=== PATIENT | female | born 1955 | race Hispanic/Latino ===

== ENCOUNTER 2019-09-15 10:40 | Observation (INO) | payer BC ==
--- NOTE | 2019-09-14 10:55 | Anesthesia Consultation ---
Anesthesia Consult and Med Hx Date of service: 09/14/19 - Airway Anesthetic Teeth Evaluation: Poor ROM Head & Neck: Adequate Mental/Hyoid Distance: Adequate Mallampati Class: Class II Intubation Access Assessment: Good - Pulmonary Exam CTA: Yes - Cardiac Exam Cardiac Exam: RRR - Pre-Operative Health Status ASA Pre-Surgery Classification: ASA3 Proposed Anesthetic Plan: General (Smoker recently quit but still smells of tobacco - 2 packs a day 40 + years , hypothyroidism, , hearing impairment ) - Pulmonary Hx Smoking: Yes (SINCE AGE 19; 2PACKS/DAILY;QUIT 08/2019) Hx Sleep Apnea: (HIGH RISK) - Central Nervous System Hx Psychiatric Problems: No - Gastrointestinal Hx Ulcer: Yes (PERFORATED (SX)) - Endocrine Hx Hypothyroidism: Yes - Other Systems Hx Alcohol Use: No Hx Substance Use: No Hx Cancer: No
--- NOTE | 2019-09-14 11:26 | XRay Report ---
CHEST 2 VIEWS INDICATION: Pre- Surgical; Heavy Smoker. COMPARISON: FINDINGS: Support devices: None. Heart: Within normal limits. Lungs/pleura: No acute air space or interstitial disease. No pneumothorax. Additional findings: None. IMPRESSION: Unremarkable chest films. Signer Name: Akshat Alexandre Jr, MD Signed: 09/14/2019 11:22 AM Workstation Name: [id number]
[~2019-09-15 10:40] MED LIST: VANCOMYCIN 1,750 MG in SODIUM CHLORIDE 0.9% 500 ML 500 ML IV SCH
[2019-09-15] MEDS ORDERED: LACTATED RINGERS 1,000 ML ONE ×2 (12:06→15:45)
[2019-09-15] MEDS ORDERED: BUPIVACAINE-EPINEPHRINE/PF 0.5%-1:200,000 (30 ML) VIAL INFILTRATI ONE (12:37)
[2019-09-15] MEDS ORDERED: LIDOCAINE (1%) 10 MG/1 ML VIAL 20 ML MDV ONE ×2 (12:37→13:30)
[2019-09-15] MEDS ORDERED: MIDAZOLAM 2 MG/2 ML INJ IV NR (13:00)
[2019-09-15] MEDS ORDERED: LACTATED RINGERS 1,000 ML IV SCH (13:00)
[2019-09-15] MEDS ORDERED: LIDOCAINE MPF (2%) 20 MG/1 ML VIAL 5 ML ONE (13:23)
[2019-09-15] MEDS ORDERED: ROCURONIUM 50 MG/5 ML INJ IV ONE ×2 (13:23→15:16)
[2019-09-15] MEDS ORDERED: fentaNYL 100 MCG/2 ML INJ ONE ×2 (13:23→16:03)
[2019-09-15] MEDS ORDERED: PROPOFOL 200 MG/20 ML VIAL IV ONE (13:23)
[2019-09-15] MEDS ORDERED: BUPIVACAINE/PF (0.5%) 5 MG/1 ML 30 ML VIAL INFILTRATI ONE (13:30)
[2019-09-15] MEDS ORDERED: fentaNYL 100 MCG/2 ML INJ IV ONE (13:31)
--- NOTE | 2019-09-15 13:31 | Anesthesia Day of Surgery ---
Anesthesia Day of Surgery - Day of Surgery Patient Examined: Yes Patient H&P Reviewed: Yes Patient is NPO: Yes
[2019-09-15] MEDS ORDERED: ePHEDrine SULFATE 50 MG/1 ML INJ ONE (13:53)
[2019-09-15] MEDS ORDERED: ONDANSETRON 4 MG/2 ML INJ ONE (14:21)
[2019-09-15] MEDS ORDERED: dexAMETHasone 20 MG/5 ML VIAL ONE (14:21)
[2019-09-15] MEDS ORDERED: SODIUM CHLORIDE 0.9% IRR 1,500 ML BOTTLE IR ONE (15:08)
[2019-09-15] MEDS ORDERED: HYDROmorphone 1 MG/1 ML INJ ONE ×2 (17:09→17:15)
--- NOTE | 2019-09-15 17:51 | Post Operative Note ---
Date of procedure: 09/15/19 Pre-op diagnosis: incarcerated incisional hernia Post-op diagnosis: same Findings: 1. 13cm x 7 cm incarcerated incisional hernia containing omentum 2. Complex omental and colon adhesions to anterior abdominal wall 3. 15cm x 20 cm mesh used to repair defect Procedure: robotic assisted lysis of adhesions, reduction of incarcerated incisional hernia, repair of hernia with mesh Anesthesia: GETA, other (ACACIA BLOCK) Surgeon: DIDIER MCCLURE Graining Press Operator: SARAI RENDON Estimated blood loss: minimal Pathology: none Condition: stable Disposition: PACU
--- NOTE | 2019-09-15 18:17 | Event Note ---
Date: 09/15/19 Patient scheduled for outpatient Robotic assisted incisional hernia repair. Hernia repair was complex and required more time to perform than anticipated. Patient stable but will require admission for observation (likely less than 48hrs) and for pain control. Discussed with her mother in law. All orders placed.
[2019-09-15] MEDS ORDERED: oxyCODONE /ACETAMINOPHEN 5-325MG TAB PO PRN (18:54)
[2019-09-15] MEDS ORDERED: MORPHINE 2 MG/1 ML INJ IV PRN (18:54)
[2019-09-15] MEDS ORDERED: ACETAMINOPHEN 325 MG TAB PO PRN (18:54)
[2019-09-15] MEDS: HEPARIN 5,000 UNIT/1 ML VIAL SUB-Q SCH (23:00)
[2019-09-15] MEDS: D5W/0.45% NACL 1,000 ML IV SCH (23:01)
[2019-09-16] MEDS: ONDANSETRON 4 MG/2 ML INJ IV PRN ×2 (02:25→10:14)
[2019-09-16] MEDS: HEPARIN 5,000 UNIT/1 ML VIAL SUB-Q SCH ×3 (06:16→22:57)
[2019-09-16] MEDS: LEVOTHYROXINE 112 MCG TAB PO SCH (06:16)
[2019-09-16 07:47] LABS: Basophils % (Auto) 0.1 % (0.0-1.8); Hematocrit 40.4 % (30.3-42.9); Hemoglobin 13.5 gm/dl (10.1-14.3); Lymphocytes # (Auto) 0.7 K/mm3 (1.2-5.4); Lymphocytes % (Auto) 5.4 % (13.4-35.0); Mean Corpuscular HGB Conc 34 % (30-34); Mean Corpuscular Volume 87 fl (79-97); Monocytes # (Auto) 1.2 K/mm3 (0.0-0.8); Monocytes % (Auto) 9.2 % (0.0-7.3); Platelet Count 280 K/mm3 (140-440); Red Blood Count 4.63 M/mm3 (3.65-5.03); Red Cell Distribution Width 13.9 % (13.2-15.2)
--- NOTE | 2019-09-16 08:35 | Post Anesthesia Evaluation ---
- Post Anesthesia Evaluation Patient Participated: Yes Airway Patent: Yes Stable Respiratory Function: Yes (On Bipap) Nausea/Vomiting: No Temp > 96.8F: Yes Pain Manageable: Yes Adequeate Hydration: Yes Anesthesia Complications: No Block Receding Appropriately: Yes Patient on Ventilator: No
[2019-09-16 08:46] LABS: BUN/Creatinine Ratio 26; Blood Urea Nitrogen 13 mg/dL (7-17); Calcium 9.2 mg/dL (8.4-10.2); Hemolysis Index 6
[2019-09-16] MEDS ORDERED: ONDANSETRON 4 MG/2 ML INJ IV STA (10:08)
[2019-09-16] MEDS: D5W/0.45% NACL 1,000 ML IV SCH (10:21)
--- NOTE | 2019-09-16 11:21 | Progress Note ---
Assessment and Plan 63 yo F s/p robotic assisted lysis of adhesions, incisional hernia repair with mesh, POD 1 Plan: 1. Clear liquid diet 2. IVF 3. zofran Prn, will add compazine prn for nausea 4. dc morphine as it is exacerbating nausea 5. start prn dilaudid for pain 6. OOB to chair/ambulate 7. abdominal binder at all times 8. DVT ppx 9. incentive spirometry/pulm toilet - wean supplemental O2 Thank you, please call with questions. Subjective Date of service: 09/16/19 Narrative: Pt seen and examined. c/o severe nausea and retching. Clear spit up. She states it is exacerbated by the morphine. No f/c. No cp, sob. Minimal abdominal pain. Objective Vital Signs - 12hr 09/16/19 09/16/19 09/16/19 00:00 02:25 04:38 Temperature 98.0 F 97.8 F Pulse Rate 97 H 98 H Respiratory 16 20 16 Rate Blood Pressure 108/66 116/70 O2 Sat by Pulse 94 93 Oximetry 09/16/19 07:56 Temperature 98.1 F Pulse Rate 95 H Respiratory 18 Rate Blood Pressure 123/73 O2 Sat by Pulse 97 Oximetry - General physical appearance Narrative Exam: Gen: AAOx3. mild distress due to nausea CV: S1, S2+ Resp: even and unlabored Abd: soft, ND, very mild TTP near incisions. All incisions c/d/i. No r/r/g. Abdominal binder in place. Ext: no c/c/e - Labs 09/16/19 07:07 09/16/19 07:07 Diabetes panel 09/16/19 Range/Units 07:07 Sodium 142 (137-145) mmol/L Potassium 4.1 (3.6-5.0) mmol/L Chloride 105.0 (98-107) mmol/L Carbon Dioxide 23 (22-30) mmol/L BUN 13 (7-17) mg/dL Creatinine 0.5 L (0.7-1.2) mg/dL Glucose 142 H (65-100) mg/dL Calcium 9.2 (8.4-10.2) mg/dL Calcium panel 09/16/19 Range/Units 07:07 Calcium 9.2 (8.4-10.2) mg/dL Pituitary panel 09/16/19 Range/Units 07:07 Sodium 142 (137-145) mmol/L Potassium 4.1 (3.6-5.0) mmol/L Chloride 105.0 (98-107) mmol/L Carbon Dioxide 23 (22-30) mmol/L BUN 13 (7-17) mg/dL Creatinine 0.5 L (0.7-1.2) mg/dL Glucose 142 H (65-100) mg/dL Calcium 9.2 (8.4-10.2) mg/dL Adrenal panel 09/16/19 Range/Units 07:07 Sodium 142 (137-145) mmol/L Potassium 4.1 (3.6-5.0) mmol/L Chloride 105.0 (98-107) mmol/L Carbon Dioxide 23 (22-30) mmol/L BUN 13 (7-17) mg/dL Creatinine 0.5 L (0.7-1.2) mg/dL Glucose 142 H (65-100) mg/dL Calcium 9.2 (8.4-10.2) mg/dL
[2019-09-16] MEDS: HYDROmorphone 1 MG/1 ML INJ IV PRN (12:04)
[2019-09-16] MEDS: PROCHLORPERAZINE EDISYLATE 10 MG/2 ML VIAL IV PRN (12:20)
[2019-09-17] MEDS: ONDANSETRON 4 MG/2 ML INJ IV PRN (04:35)
[2019-09-17] MEDS: HYDROmorphone 1 MG/1 ML INJ IV PRN (04:36)
[2019-09-17] MEDS: HEPARIN 5,000 UNIT/1 ML VIAL SUB-Q SCH (06:00)
[2019-09-17] MEDS: LEVOTHYROXINE 112 MCG TAB PO SCH (06:00)
--- NOTE | 2019-09-17 09:16 | Discharge Summary ---
Providers - Providers Date of Admission: 09/15/19 18:17 Date of discharge: 09/17/19 Attending physician: DIDIER MCCLURE DO 09/15/19 18:54 Physical Therapy Evaluation and Treat [CONS] Routine Comment: Reason For Exam: post op, walks with cane Primary care physician: HENNA JACOB Hospitalization Reason for admission: incisional hernia Condition: Good Procedures: robotic assisted laparoscopic incisional hernia repair with mesh, lysis of adhesions Hospital course: Patient underwent surgery which was complex and prolonged. She was monitored in PACU. It was decided to admit the patient for observation for pain control, continuous pulse ox and HR monitoring. The patient c/o nausea during the hospitalization. No emesis. Pain medication and antiemetics were prescribed and patient's symptoms improved. She was getting OOB to chair and ambulating to the bathroom. She was discharged to home instable condition with home PT. Disposition: DC-01 TO HOME OR SELFCARE Time spent for discharge: 20 minutes Core Measure Documentation - Palliative Care Palliative Care/ Comfort Measures: Not Applicable - Core Measures Any of the following diagnoses?: none Exam - Physical Exam Narrative exam: Gen: AAOx3. NAD CV: s1, S2+ resp; even and unlabored Abd: soft, ND, mild discomfort on palpation of mid abdomen near incisions. Incisions c/d/i. Abdominal binder in place Ext: no c/c/e - Constitutional Vitals: Temp Pulse Resp BP Pulse Ox 97.9 F 97 H 20 135/71 95 09/17/19 08:44 09/17/19 08:44 09/17/19 08:44 09/17/19 08:44 09/17/19 09:10 Plan Activity: other (NO HEAVY LIFTING OF MORE THAN 15 LBS UNTIL CLEARED BY SURGEON. NO DRIVING IF TAKING NARCOTIC PAIN MEDICATIONS) Diet: low fat Wound: open to air (MAY SHOWER WITH SOAP AND WATER, PAT INCISIONS DRY, DO NOT SCRUB. WEAR ABDOMINAL BINDER AT ALL TIMES EXCEPT FOR WHEN SHOWERING OR DURING SLEEP) Additional Instructions: CALL DR. MCCLURE'S OFFICE IF YOU HAVE INTRACTABLE ABDOMINAL PAIN, NAUSEA, VOMITING OR ANY OTHER CONCERNS. Care Plan Goals: RESUME DAILY ACTIVITIES Plan of Treatment: FOLLOW UP WITH DR. MCCLURE IN 2WEEKS PAIN CONTROL NAUSEA CONTROL PHYSICAL THERAPY Health Concerns: NONE Follow up with: HENNA JACOB MD [Primary Care Provider] - 7 Days DIDIER MCCLURE DO [Staff Physician] - 14 Days Prescriptions: Nicotine [Habitrol] 14 mg TD DAILY #30 patch oxyCODONE /ACETAMINOPHEN [Percocet 5/325] 1 tab PO Q4HR PRN #30 tab PRN Reason: Pain , Severe (7-10) Promethazine [Phenergan] 25 mg PO Q8HR PRN #30 tab PRN Reason: Nausea Ondansetron [Zofran ODT TAB] 8 mg PO Q8HR PRN #30 tab.rapdis PRN Reason: Nausea
[2019-09-17] MEDS: PROCHLORPERAZINE EDISYLATE 10 MG/2 ML VIAL IV PRN (09:32)
[2019-09-17] MEDS ORDERED: oxyCODONE /ACETAMINOPHEN 5-325MG TAB PO PRN (10:00)
--- NOTE | 2019-09-17 12:09 | Operative Report ---
PREOPERATIVE DIAGNOSIS: Incarcerated incisional hernia. POSTOPERATIVE DIAGNOSIS: Incarcerated incisional hernia. FINDINGS: 1. A 13 cm x 7 cm incarcerated incisional hernia containing omentum. 2. Complex omental and colon adhesions to the anterior abdominal wall. 3. A 15 cm x 20 cm mesh used to repair defect. PROCEDURE: Robotic-assisted laparoscopic lysis of adhesions, reduction of incarcerated incisional hernia, repair of hernia with mesh. ANESTHESIA: General endotracheal anesthesia, TAP block. SURGEON: Holly Lares DO PATIENT TRANSITION SPECIALIST: Joe Trujillo MD ESTIMATED BLOOD LOSS: Minimal. PATHOLOGY: None. CONDITION ON DISPOSITION: The patient is stable to PACU. HISTORY OF PRESENT ILLNESS AND INDICATION: The patient is a 63-year-old female who was seen in the office for an incisional hernia that resulted from an emergent exploratory laparotomy for perforated peptic ulcer. The patient was having significant pain from the hernia and CT scan showed a large hernia containing omentum. The patient was smoking a significant amount per day and therefore she was strongly encouraged to quit smoking prior to surgery. Once the patient had quit smoking, approximately 3 weeks, she was scheduled for surgery. All risks, benefits and alternatives to hernia repair were discussed with the patient and questions answered. Consent was obtained. PROCEDURE IN DETAIL: The patient was identified in the preoperative area and taken back to the operating room and placed on the operating table in supine position. After anesthesia was induced, lateral arms were tucked and all bony prominences padded appropriately. Abdomen was prepped and draped in the usual sterile fashion. Timeout was performed. A felicia incision was made in the left upper quadrant at Truong's point through which a Veress needle was inserted. The Veress needle position was confirmed using saline drop test and the abdomen insufflated to 15 mmHg. A 5 mm incision was made in the right upper quadrant through which a 5 mm Optiview trocar was placed. The abdomen was inspected. There was no underlying injury to any of the abdominal structures. The Veress needle tract and tip was seen and it was removed. Upon examination of the abdomen, there were adhesions to the entire right lower quadrant and midline. There was some colon in the right lower quadrant also adhesed to the anterior abdominal wall along with omentum. It was therefore decided to place our ports on the left side where there were no adhesions. An 8 mm robotic trocar was placed in the left upper quadrant as well as left lower quadrant under direct visualization. A 12 mm balloon trocar was placed in the left lateral abdomen half way between each of the robotic trocars. The robot was then docked with a fenestrated bipolar grasper in arm #2 and a monopolar scissor in arm #1. Surgeon was then transferred to the console. A meticulous dissection was then undertaken in order to take down all omental and bowel adhesions to the anterior abdominal wall in order to access the site of the hernia. During the dissection, the omentum, which was incarcerated in the hernia defects was carefully reduced and hemostasis achieved and ensured along the way. The lysis of adhesions took approximately 2 hours as the patient had dense adhesions from prior abdominal surgery. Once all of the omentum that was incarcerated in the hernia defects was removed and enough adhesions were taken down to accommodate a mesh, hernia defects were inspected. There were approximately 7 hernia defects along the midline, which were measured at a total of 13 cm x 7 cm. Therefore, it was decided to use a 20 cm x 15 cm mesh to repair the defect. A Bard Ventralight composite mesh was chosen. Upon inspection of the bowel, there was a tiny serosal injury noted to the colon in the right lower quadrant, which was repaired using an interrupted 3-0 silk seromuscular stitch. There was no evidence of full thickness injury or spillage of bowel contents. The bowel was unremarkable, the small bowel and large bowel was unremarkable and not dilated. The mesh along with suture material was introduced into the abdomen. The mesh was placed at the center of the defect and in order to ensure good coverage and overlap. I attempted to suture the mesh in circumferentially; however, there were technical issues with the luisa suture cut needle transport driver, which could not be resolved with troubleshooting, and therefore, it was decided to proceed laparoscopically. The robot was undocked and the remainder of the case was performed laparoscopically. The surgeon was scrubbed back in. The suture and sharp material was removed from the abdomen along with a Ray-Katlyn. The transfascial sutures were placed on the North and South and right side of the mesh and the mesh was then tacked into place using a ProTack. These were 2-0 Vicryl transfascial sutures placed through the abdominal wall and through the mesh using the Lfy-Ashok device. Tacks were placed approximately 1 cm apart. At the end, the mesh was seen to lay flat with good coverage of all hernia defects. The 12 mm port was then removed and the fascia closed with interrupted 0 Vicryl suture. The same was done for both 8 mm ports. The abdomen was then slowly desufflated and the 5 mm port removed. The skin incisions were closed with 4-0 Monocryl subcuticular stitches and skin glue. At the end of the case, all sponge, instrument, sharp counts were correct x 2. The patient was awoken from anesthesia and extubated. An abdominal binder was applied. She was straight cathed for 150 mL of urine. She was taken to PACU in stable condition. JOB# [id number] CECILIO/JULIO
[2019-09-17 12:51] VITALS: BP 145/79
== END 2019-09-17 13:30 | disposition home or self-care (01) ==
LOC: OR 10:40 → 3B-SURG 18:17
PROVIDERS: ADMIT Surgery; ATTEND Surgery
DX: K43.2 Incisional hernia without obstruction or gangrene (principal); F17.200 Nicotine dependence, unspecified, uncomplicated; E03.9 Hypothyroidism, unspecified; Z86.19 Personal history of other infectious and parasitic diseases; Z96.652 Presence of left artificial knee joint; Z98.890 Other specified postprocedural states
CPT/HCPCS: 36415; 36600; 49654; 64450; 71046; 80048; 82803; 82962; 85025; 94660; 96372; 96374; 96375; 96376; 97161; C1781; G0378; J0780; J1100; J1170; J1644; J2250; J2270; J2405; J2704; J3010; J3370; J7040; J7120; S2900